=== PATIENT | female | born 1960 | race Two or more races ===

== ENCOUNTER 2018-03-09 23:39 | Emergency (ER) | payer OTHER ==
[~2018-03-09] VITALS: Ht 162.6 cm; Wt 72.6 kg
[2018-03-10] MEDS ORDERED: SILVADENE20 GM TOP (01:34)
== END 2018-03-10 01:56 | disposition home or self-care (01) ==
LOC: ER 23:39
DX: T23.161A Burn of first degree of back of right hand, initial encounter (principal); X10.2XXA Contact with fats and cooking oils, initial encounter; Y93.89 Activity, other specified; Y92.89 Other specified places as the place of occurrence of the external cause; Y99.8 Other external cause status

== ENCOUNTER 2019-06-07 13:26 | Emergency (ER) | payer OTHER ==
[~2019-06-07] VITALS: Ht 165.1 cm; Wt 74.8 kg
[~2019-06-07 13:26] MED LIST: SILVADENE20 GM TOP
[2019-06-07] MEDS ORDERED: LOZOL (13:50)
[2019-06-07] MEDS ORDERED: ZEGERID 20 MG1 EACH (13:51)
[2019-06-07] MEDS ORDERED: RELAFEN (13:52)
[2019-06-07] MEDS ORDERED: INDAPAMIDE1.25 MG (13:53)
[2019-06-07] MEDS ORDERED: NAPROXEN500 MG PO (17:33)
== END 2019-06-07 18:41 | disposition home or self-care (01) ==
LOC: ER 13:26
DX: M65.841 Other synovitis and tenosynovitis, right hand (principal)

== ENCOUNTER 2023-12-08 09:47 | Emergency (ER) | payer OTHER ==
[~2023-12-08] VITALS: Ht 162.6 cm; Wt 77.1 kg
[~2023-12-08 09:47] MED LIST changes: +INDAPAMIDE1.25 MG; +LOZOL; +NAPROXEN500 MG PO; +RELAFEN; +ZEGERID 20 MG1 EACH
== END 2023-12-08 10:53 | disposition home or self-care (01) ==
LOC: ER 09:47
DX: J06.9 Acute upper respiratory infection, unspecified (principal); Z91.018 Allergy to other foods

== ENCOUNTER 2024-11-03 16:57 | Emergency (ER) | payer OTHER ==
[~2024-11-03] VITALS: Ht 162.6 cm; Wt 65.8 kg
[~2024-11-03 16:57] MED LIST changes: +ARMOUR THYROID60 M1 PO; +ATORVASTATIN CA20 MG PO; +DEXLANSOPRAZOLE60 MG PO
[2024-11-03 17:21] VITALS: BP 140/80; O2SAT 98
== END 2024-11-03 19:52 | disposition home or self-care (01) ==
LOC: ER 16:59
DX: M54.9 Dorsalgia, unspecified (principal); M25.561 Pain in right knee; W18.39XA Other fall on same level, initial encounter; Y93.89 Activity, other specified; Y92.89 Other specified places as the place of occurrence of the external cause; M85.88 Other specified disorders of bone density and structure, other site; Z91.018 Allergy to other foods